=== PATIENT | male | born 1965 | race Two or more races ===

== ENCOUNTER → 2018-10-25 09:31 | Outpatient (CLI) | payer BC, SELFPAY ==
--- NOTE | 2018-10-25 09:37 | RAD_ITS ---
STUDY: X-RAY - RIGHT HAND REASON FOR EXAM: Male, 53 years old. Pain TECHNIQUE: 3 view(s) of the hand. COMPARISON: None. FINDINGS: Normal radiocarpal articulation. Normal distal radioulnar joint. Normal visualized carpal bones. Normal carpal articulations Normal carpometacarpal articulation of the thumb. Normal second through fifth carpometacarpal joints. Normal metacarpi. Normal metacarpophalangeal joint of the thumb. Normal interphalangeal joint of the thumb. Normal proximal and distal phalanges of the thumb. Normal metacarpophalangeal joints of the second through fifth fingers. Normal proximal and distal interphalangeal joints of the second through fifth fingers. Normal phalanges of the second through fifth fingers. The soft tissue structures are unremarkable. RAD/Hand Min 3 Views IMPRESSION: Normal x-ray examination of the hand. No fractures. No osteoarthritis Electronically Signed: Sujit Montgomery MD at 5:25 EST Tel , Service support ,
--- NOTE | 2018-10-25 09:37 | RAD_ITS ---
STUDY: X-RAY - LEFT HAND REASON FOR EXAM: Male, 53 years old. Pain TECHNIQUE: 3 view(s) of the hand. COMPARISON: None. FINDINGS: Normal radiocarpal articulation. Normal distal radioulnar joint. Normal visualized carpal bones. Normal carpal articulations Normal carpometacarpal articulation of the thumb. Normal second through fifth carpometacarpal joints. Normal metacarpi. Normal metacarpophalangeal joint of the thumb. Normal interphalangeal joint of the thumb. Normal proximal and distal phalanges of the thumb. Normal metacarpophalangeal joints of the second through fifth fingers. Normal proximal and distal interphalangeal joints of the second through fifth fingers. Normal phalanges of the second through fifth fingers. The soft tissue structures are unremarkable. RAD/Hand Min 3 Views IMPRESSION: Normal x-ray examination of the hand. No fracture. No osteoarthritis Electronically Signed: Sujit Montgomery MD at 5:26 EST Tel , Service support ,
== END ==
PROVIDERS: Referring Provider Internal Medicine; Visit Provider Internal Medicine
DX: M25.50 Pain in unspecified joint (principal)
CPT/HCPCS: 73130

== ENCOUNTER → 2018-11-15 13:32 | Outpatient (CLI) | payer SELFPAY ==
--- NOTE | 2018-11-15 13:39 | CT_ITS ---
STUDY: CT CHEST WITHOUT CONTRAST REASON FOR EXAM: Male, 53 years old. Limited chest scan for calcium scoring RADIATION DOSAGE (If Supplied By Facility): CTDIvol = ( 12.19 ) mGy, DLP = ( 219.42 ) mGycm TECHNIQUE: Transaxial imaging was performed without the administration of intravenous contrast material. Multiplanar coronal and sagittal images were reformatted. Individualized dose optimization techniques were used for this CT. COMPARISON: None. FINDINGS: Visualized lungs are unremarkable without pulmonary nodule/mass. There is no demonstrated pleural abnormality. Normal heart and pericardium. There are calcifications of the coronary arteries. Total Agaston score of 50.5 (59th percentile). Normal mediastinum. Normal hilar regions. Normal unenhanced pulmonary arteries. Normal aorta arch and descending thoracic aorta. Normal osseous structures. There is no demonstrated abnormality of the visualized upper abdomen. CT/Limited Chest CT w/CCTA IMPRESSION: 1. Mild coronary atherosclerosis. 2. No pulmonary nodule/mass. Electronically Signed: Man Mcmahan MD at 19:13 EST , Service support ,
--- NOTE | 2018-11-15 13:39 | CT_ITS ---
STUDY: CT CHEST WITHOUT CONTRAST REASON FOR EXAM: Male, 53 years old. Limited chest scan for calcium scoring RADIATION DOSAGE (If Supplied By Facility): CTDIvol = ( 12.19 ) mGy, DLP = ( 219.42 ) mGycm TECHNIQUE: Transaxial imaging was performed without the administration of intravenous contrast material. Multiplanar coronal and sagittal images were reformatted. Individualized dose optimization techniques were used for this CT. COMPARISON: None. FINDINGS: Visualized lungs are unremarkable without pulmonary nodule/mass. There is no demonstrated pleural abnormality. Normal heart and pericardium. There are calcifications of the coronary arteries. Total Agaston score of 50.5 (59th percentile). Normal mediastinum. Normal hilar regions. Normal unenhanced pulmonary arteries. Normal aorta arch and descending thoracic aorta. Normal osseous structures. There is no demonstrated abnormality of the visualized upper abdomen. CT/CCTA Calcium Scoring IMPRESSION: 1. Mild coronary atherosclerosis. 2. No pulmonary nodule/mass. Electronically Signed: Man Mcmahan MD at 19:13 EST , Service support ,
[2018-11-15 13:54] VITALS: BP 174/108; PULSE 51; RESP 16; O2SAT 98; BMI 35.5
--- NOTE | 2018-11-22 12:23 | CA.SCORE ---
Calcium Scoring Date of Study:: 11/15/18 Coronary Calcium Scoring: Total calcium score of 50.5 Conclusion: Conclusion: The total calcium score (50.5) is between the 50th and 75th percentile for men between the ages of 50 and 54. (Exact percentile calculated to be 59%; this means 58% of the population has a lower calcium score and 41% of the population has a higher calcium score than this patient.) This likely represents mild plaque burden with likely mild to minimal coronary artery stenosis. A full evaluation of cardiac risk should include an assessment of all conventional risk factors, and the scores and percentile ranking is reported herein should be evaluated in this context. Recommend clinical correlation or alternative mode of testing if coronary occlusive disease or ischemia is suspected. Results: Left main: 0 Left anterior descending (LAD): 42.1 Left circumflex (LCx): 8.34 Right coronary artery (RCA): 0 Total Agatston score: 50.5 Impression: See above.
== END ==
PROVIDERS: Family Provider Internal Medicine; PCP Internal Medicine; Referring Provider Internal Medicine; Visit Provider Internal Medicine
DX: E78.00 Pure hypercholesterolemia, unspecified (principal)
CPT/HCPCS: 75571; 76380

== ENCOUNTER → 2022-10-09 | Outpatient (CLI) | payer OTHER, SELFPAY ==
--- NOTE | 2022-10-09 14:11 | RAD_ITS ---
STUDY: X-RAY - LEFT ANKLE REASON FOR EXAM: Male, 57 years old. Pain. TECHNIQUE: 3 view(s) of the ankle. COMPARISON: None. FINDINGS: Normal visualized distal tibia and fibula. Normal medial and lateral malleoli. Normal tibiotalar articulation and ankle mortise. Normal visualized talus and calcaneus. The visualized subtalar, talonavicular, calcaneocuboid and tarsal articulations are normal. The soft tissue structures are unremarkable. RAD/Ankle min 3 Views IMPRESSION: Normal x-ray examination of the ankle. Electronically Signed: Regan Rolle, at 15:31 EST ,
== END | disposition home or self-care (01) ==
LOC: MTRAD 14:08
PROVIDERS: PCP Internal Medicine; Referring Provider Internal Medicine; Visit Provider Internal Medicine
DX: M25.572 Pain in left ankle and joints of left foot (principal)
CPT/HCPCS: 73610

== ENCOUNTER 2023-02-04 15:24 | Emergency (ER) | payer OTHER, SELFPAY ==
[2023-02-04] VITALS (9 sets, daily range): BP systolic 119–172; BP diastolic 71–107; PULSE 60–76; RESP 14–18; TEMP 36.2; O2SAT 97–99; BMI 38.5
--- NOTE | 2023-02-04 15:30 | NURSING ---
NO OLD EKGS
--- NOTE | 2023-02-04 15:54 | EKG12_ITS ---
Test Reason : CP Blood Pressure : / mmHG Vent. Rate : 075 BPM Atrial Rate : 075 BPM P-R Int : 148 ms QRS Dur : 092 ms QT Int : 414 ms P-R-T Axes : 050 043 054 degrees QTc Int : 462 ms Normal sinus rhythm Incomplete right bundle branch block Borderline ECG Confirmed by LISSETTE GIRARD, DANIELA ([id number]), scientific editor JACKIE ELIZABETH ([id number]) on 02/05/2023 12:47:27 PM Referred By: MANUEL Confirmed By:DANIELA MCLAUGHLIN MD
--- NOTE | 2023-02-04 15:55 | RAD_ITS ---
STUDY: X-RAY CHEST REASON FOR EXAM: Male, 57 years old. CHEST PAIN chest pain TECHNIQUE: XR Chest 1 View COMPARISON: None FINDINGS: There is no demonstrated pleural abnormality. Normal size heart. Normal mediastinum and pritesh. Normal visualized pulmonary arteries. Normal visualized aortic arch and descending thoracic aorta. Normal visualized thoracic spine. Normal visualized ribs, clavicles, and shoulders. There is no demonstrated abnormality of the visualized soft tissue structures of the upper abdomen. RAD/Chest 1 View (Portable) IMPRESSION: There are no acute findings. Electronically Signed: Jimenez Cavazos MD at 16:18 EDT ,
--- NOTE | 2023-02-04 15:55 | ED.VIS.CHEST ---
HPI History of Present Illness Chief Complaint: Chest Pain Narrative Narrative: 57-year-old male with history of hypertension, hyperlipidemia sent in by his PCP for chest pain. Apparently is noncompliant with his hypertension medications per his PCP. Patient reports he started having left-sided jaw pain on Sunday when he was at work and states it was intermittent. He thought it was something like TMJ. Over the course of the weekend this had come and gone several times. Today he woke up and felt like he may have slept on his left shoulder wrong. He reports pain in the left trapezius, near left shoulder blade and he was at [employer] when he started to radiate into his left chest. He describes this as a tightness and squeezing. He relates that he was short of breath a little bit. He was not diaphoretic, lightheaded, nauseous. PFSH PFS Medical History Hyperlipidemia Hypertension Home Medications tizanidine 4 mg capsule (Zanaflex) 4 mg PO Q8H PRN muscle spasticity #10 caps 02/04/23 [Rx Last Taken Unknown] Allergy/AdvReac Type Severity Reaction Status Date / Time No Known Allergies Allergy Verified 02/04/23 15:24 Social History Smoking Status: Never smoker ROS ROS ED Constitutional Constitutional ED: Denies chills, fever(s) or sweats Eyes Eyes: Denies blurry vision or change in vision ENT ENT ED: Reports other Details: Left jaw pain ; Denies sore throat Cardiovascular Cardiovascular: Denies chest pain, palpitations or racing heartbeat Respiratory/Chest Respiratory/Chest: Reports dyspnea; Denies cough or sputum Gastrointestinal Gastrointestinal: Denies abdominal pain, constipation, diarrhea, nausea or vomiting Genitourinary Genitourinary ED: Denies dysuria, hematuria or urinary frequency Musculoskeletal Musculoskeletal: Denies arthralgias, myalgias or neck pain Integumentary Denies abscess, Abrasions or rash Neurologic Neurologic: Denies headache(s), paresthesias or weakness Psychiatric Psychiatric: Denies anxiety, depression, suicidal ideation or suicidal thoughts Endocrine Endocrinology: Denies polydipsia or polyuria EXAM Physical Exam Const Vital Signs: 02/04/23 15:25 02/04/23 15:36 02/04/23 16:00 Temperature 97.1 F L Temperature Source Temporal Pulse Rate 62 Respiratory Rate 18 Respiratory Effort Normal Non-Labored Blood Pressure 172/107 H Blood Pressure Mean 128 Pulse Ox 99 99 Oxygen Delivery Method Room Air Room Air 02/04/23 16:18 02/04/23 16:23 02/04/23 16:24 Temperature Temperature Source Pulse Rate 69 68 69 Respiratory Rate 15 Respiratory Effort Blood Pressure 136/83 H 140/71 H 140/71 H Blood Pressure Mean 94 Pulse Ox 97 Oxygen Delivery Method Room Air 02/04/23 16:29 02/04/23 17:00 02/04/23 18:00 Temperature Temperature Source Pulse Rate 76 60 69 Respiratory Rate 16 14 Respiratory Effort Blood Pressure 152/82 H 122/79 H 119/75 Blood Pressure Mean 93 89 Pulse Ox 99 99 Oxygen Delivery Method Room Air Room Air Positive well nourished General Appearance ED: NAD HEJENNYFER Reports moist mucous membranes normocephalic and atraumatic Eyes PERRL Neck Neck Narrative: There is some cervical paraspinal muscular tenderness in the left trapezius. Chest Wall inspection of chest normal Resp normal respiratory effort and clear to auscultation bilaterally Auscultation: Negative for rales, rhonchi or wheezes Cardio regular rate and regular rhythm GI normal to inspection, nondistended, normoactive bowel sounds Extremity Extremity Narrative: When ranging the left shoulder this does reproduce the discomfort in the patient's chest on the left. Neuro oriented x3 and CN's II-XII intact bilaterally Sensorium / Orientation: awake and alert Psych mental status grossly normal Skin no rashes or lesions noted Heart Score History: Slightly/Non-Suspicious ECG: Normal Age: >45 - <65 years Risk Factors: 1 or 2 Risk Factors Troponin: </= Normal Limit Score: 2 MDM MDM MDM Narrative Medical decision making narrative: Patient presenting with chest pain. Initially it was left jaw pain which came and went over course of the weekend. Now he is having left shoulder and left chest pain which he describes as squeezing and radiates into the trapezius. Initial differential is STEMI versus NSTEMI, chest wall strain, PE, pneumonia, aortic dissection. Patient's EKG on my interpretation shows a normal sinus rhythm with a ventricular rate of 75 bpm without sign of ischemic change. KS interval 140 ms, QRS duration 92 ms, QT 414 ms, QTc 460 ms. No evidence of ischemia on my interpretation. At this point patient will have troponin and delta troponin to rule out NSTEMI. HEART score is 2. Chest x-ray to rule out pneumonia, dissection. Patient PERC negative so low suspicion for PE. He is having reproducible pain in the left chest wall with range of motion of the which would make musculoskeletal pain likely. His jaw pain is improved. He is not having ripping and tearing pain neurologic symptoms to suggest he is having dissection. Patient initially hypertensive at 172/107 but his come down to 145/74. CBC to assess white blood cell count, hemoglobin, differential. BMP to assess renal function electrolytes. Patient given a nitroglycerin trial as he is still having some squeezing pain in the chest. Nitroglycerin did not help his pain. CBC shows a normal white blood cell count at 9.2. Hemoglobin chronic are stable. Platelets are normal. Renal function electrolytes within normal limits. High-sensitivity troponin is 6 initially and the delta troponin is 7. There is no significant interval change. At this point I feel the patient is stable to be discharged home. Will discuss with Dr. Orlando for follow-up. Patient discharged stable condition. Impression: 1. Chest pain 2. Elevated blood pressure resolved 3. Jaw pain Lab Data Attestation: I reviewed the patient's lab results. Labs: Laboratory Results - last 24 hr 02/04/23 02/04/23 02/04/23 15:30 15:30 17:34 WBC 9.2 RBC 5.13 Hgb 15.4 Hct 47.0 MCV 91.6 MCH 30.0 MCHC 32.8 RDW Std Deviation 43.8 RDW Coeff of Patricia 12.9 Plt Count 260 MPV 11.0 Immature Gran % (Auto) 0.200 Neut % (Auto) 62.9 Lymph % (Auto) 25.1 [place] % (Auto) 8.6 Eos % (Auto) 2.5 Baso % (Auto) 0.7 Absolute Neuts (auto) 5.8 Absolute Lymphs (auto) 2.31 Nucleated RBC % 0 Sodium 140 Potassium 4.1 Chloride 104 Carbon Dioxide 28.0 Anion Gap 8 BUN 18 Creatinine 0.95 Estim Creat Clear Calc 95.30 Est GFR (MDRD) Af Amer 105 Est GFR (MDRD) Non-Af 87 BUN/Creatinine Ratio 18.9 Glucose 93 Calcium 9.2 Troponin I High Sens 6 7 Radiography Diagnostic Testing: Clinical Impression(s) from Imaging Studies Chest X-Ray 02/04/23 15:55 IMPRESSION: There are no acute findings. Electronically Signed: Jimenez Cavazos MD at 16:18 EDT Reading Location ID and State: [facility] / [place] , Service support , Discharge Plan Triage Chief Complaint: Chest Pain ED Provider: Stanley Mcdonald Dx/Rx/DC Orders Instructions: ED Chest Pain, Noncardiac, ED Chest Wall Strain Prescriptions: New tizanidine [Zanaflex] 4 mg capsule 4 mg PO Q8H PRN (Reason: muscle spasticity) Qty: 10 0RF Primary Care Provider: Mery Orlando Referrals: Mery Orlando MD [Primary Care Provider] - Disposition Disposition: Home, Self Care
[2023-02-04] MEDS: Aspirin 81 MG TAB.CHEW 324 MG PO (15:58)
[2023-02-04 16:10] LABS: Absolute Lymphocyte Count 2.31 X10^3/uL (0.83-4.51); Absolute Neutrophil Count 5.8 X10^3/uL (2.0-7.7); Basophil# 0.06 X10^3/uL; Basophil% 0.7 % (0-1); Eosinophil# 0.23 X10^3/uL; Eosinophils% 2.5 % (0-5); Hemoglobin 15.4 g/dL (13.0-16.5); Lymphocyte # 2.31 X10^3/ul (0.83-4.51); Lymphocyte % 25.1 % (19-41); Mean Corp Hgb Conc 32.8 g/dL (32-36); Mean Corpuscular Volume 91.6 fL (80-94); Monocyte# 0.79 X10^3/uL; Monocyte% 8.6 % (0-10); NRBC Flagged by Analyzer 0 % (0-5); Neutrophil # 5.78 X10^3/uL (2.7-7.7); Neutrophil % 62.9 % (47-70); Platelet Count 260 K/mm3 (150-450); RBC Distribution Width CV 12.9 % (11.6-14.6); RBC Distribution Width SD 43.8 fl (35.1-43.9); Red Blood Count 5.13 M/mm3 (4.6-6.2); White Blood Count 9.2 K/mm3 (4.4-11.0)
[2023-02-04] MEDS: Nitroglycerin SL (ED/IMG/CATH) 0.4 MG TABLET SL ×3 (16:18→16:29)
[2023-02-04 16:24] LABS: Anion Gap 8 (5-15); BUN 18 mg/dL (7-18); BUN/Creat Ratio 18.9 RATIO (10-20); Calcium,Total 9.2 mg/dL (8.5-10.1); Chloride 104 mmol/L (98-107); Creatinine, Serum 0.95 mg/dL (0.70-1.30); EST Glomerular Filtration Rate 87 mL/min (>60); Est Glom Filt Rate - Afr Amer 105 mL/min (>60); Glucose 93 mg/dL (74-106); Potassium 4.1 mmol/L (3.5-5.1); Sodium Level 140 mmol/L (136-145); Troponin-I HS (w/2H Reflex) 6 pg/mL (3.0-78.0)
[2023-02-04 17:40] LABS: Reflex Troponin-HS? (from REC) Y
[2023-02-04 18:08] LABS: Troponin-I HS 7 pg/mL (3.0-78.0)
== END 2023-02-04 18:46 | disposition home or self-care (01) ==
PROVIDERS: Emergency Provider Student in an Organized Health Care Education/Training Program; PCP Internal Medicine; Visit Provider Student in an Organized Health Care Education/Training Program
DX: R07.9 Chest pain, unspecified (principal); I10 Essential (primary) hypertension; M25.512 Pain in left shoulder; R68.84 Jaw pain; E78.5 Hyperlipidemia, unspecified; R06.02 Shortness of breath
CPT/HCPCS: 71045; 80048; 84484; 85025; 93005; 99285; A4216

== ENCOUNTER → 2023-03-09 | Outpatient (CLI) | payer OTHER, SELFPAY ==
--- NOTE | 2023-03-09 13:02 | STRESSREP ---
Stress Test Report Treadmill myocardial perfusion stress test. Indication; 57-year-old patient with history of hypertension, hyperlipidemia Presented with symptoms of chest pain to the ER, symptoms radiate to the jaw and between the shoulder blade Had a prior echocardiogram in [place] in 2006 as well as stress test. And has been on medical therapy. Based on his clinical presentation he was evaluated by treadmill sestamibi study. Stress protocol: This patient exercised according to standard Luis M protocol for a total of 9 minutes achieving work level of METS maximum METS 10.4. Resting EKG demonstrates. Normal sinus rhythm. 0.4 mg of regadenoson was infused per usual protocol followed by rapid intravenous saline flush injection continuous EKG monitoring was performed. The maximum heart rate attained was 250 bpm which was 152% of maximum predicted heart . Stress EKG showed[, no significant change from the resting EKG, with maximum heart rate of 250 bpm. Artifacts were noted on the EKG Arrhythmia: No arrhythmia demonstrated Symptoms: Patient had no symptoms of chest pain, shortness of breath and ankle discomfort. Blood pressure at rest: 112/62 mmHg blood pressure at the end of stress: 220/72 mmHg Myocardial perfusion protocol. 15 mCi ]of Technetium 99m Sestamibi was injected at rest. [ 0.4 mg ]of Regadenoson was infused per usual protocol peak infusion 44 mCi ]of Technetium 99m sestamibi was injected. Stress images were obtained stress and rest images were reconstructed and compared in the short axis vertical and horizontal long axis. Gated images were also obtained Perfusion SPECT analysis: Review of the images demonstrate normal uptake of sestamibi at rest, post stress images demonstrate moderate reduced tracer uptake was noted in the inferior and the lateral myocardium With evidence of reversible myocardial ischemia, inferolateral. Gated SPECT analysis: The gated ejection fraction is 65%. Normal LV wall motion.. Conclusion: Abnormal treadmill sestamibi myocardial fusion study With inferolateral reversible myocardial ischemia Preserved LV systolic function. Correlate with the clinical presentation and consider cardiac catheterization if clinically warranted Jessica Paulino MD,FACC,[facility]
== END | disposition home or self-care (01) ==
PROVIDERS: PCP Internal Medicine; Visit Provider Internal Medicine
DX: I25.10 Atherosclerotic heart disease of native coronary artery without angina pectoris (principal); R07.9 Chest pain, unspecified
CPT/HCPCS: 78452; 93017; A9500; A4216

== ENCOUNTER → 2023-03-16 | Outpatient (CLI) | payer OTHER, SELFPAY ==
[2023-03-16 16:51] LABS: Absolute Lymphocyte Count 2.69 X10^3/uL (0.83-4.51); Absolute Neutrophil Count 4.9 X10^3/uL (2.0-7.7); Basophil# 0.06 X10^3/uL; Basophil% 0.7 % (0-1); Eosinophil# 0.27 X10^3/uL; Eosinophils% 3.1 % (0-5); Hematocrit 46.8 % (40-54); Hemoglobin 15.3 g/dL (13.0-16.5); Lymphocyte # 2.69 X10^3/ul (0.83-4.51); Lymphocyte % 30.9 % (19-41); Mean Corp Hgb Conc 32.7 g/dL (32-36); Mean Corpuscular Hgb 30.4 pg (27.0-32.0); Mean Platelet Vol. 10.9 fl (6.2-12.0); Monocyte# 0.82 X10^3/uL; Monocyte% 9.4 % (0-10); NRBC Flagged by Analyzer 0 % (0-5); Neutrophil # 4.85 X10^3/uL (2.7-7.7); Neutrophil % 55.7 % (47-70); Platelet Count 259 K/mm3 (150-450); Red Blood Count 5.03 M/mm3 (4.6-6.2); White Blood Count 8.7 K/mm3 (4.4-11.0)
[2023-03-16 17:05] LABS: Anion Gap 2 (5-15); BUN 14 mg/dL (7-18); BUN/Creat Ratio 14.6 RATIO (10-20); Calcium,Total 9.5 mg/dL (8.5-10.1); Chloride 105 mmol/L (98-107); Creatinine, Serum 0.96 mg/dL (0.70-1.30); EST Glomerular Filtration Rate 86 mL/min (>60); Est Glom Filt Rate - Afr Amer 104 mL/min (>60); Glucose 98 mg/dL (74-106); Potassium 4.5 mmol/L (3.5-5.1); Sodium Level 138 mmol/L (136-145)
== END | disposition home or self-care (01) ==
LOC: LAB 16:27
PROVIDERS: PCP Internal Medicine; Referring Provider Internal Medicine Cardiovascular Disease; Visit Provider Internal Medicine Cardiovascular Disease
DX: I25.10 Atherosclerotic heart disease of native coronary artery without angina pectoris (principal); R07.9 Chest pain, unspecified
CPT/HCPCS: 36415; 80048; 85025

== ENCOUNTER 2023-03-23 06:51 | Day surgery (SDC) | payer OTHER, SELFPAY ==
[2023-03-22 07:46] VITALS: BMI 38.0
--- NOTE | 2023-03-23 08:31 | CL.D_ITS ---
Patient Name: JOHN PIÑA Study Date: 03/23/2023 Performing: Rios Wellington MD Ht: 72 inches 182.88 cm : 1965 Wt: 280.01 lbs 127.01 kg Age: 57 Gender: male BSA: 2.46 PROCEDURE(S) PERFORMED [id number])LHC/COR/LV CLINICAL PROFILE AND INDICATIONS Indications: Suspected CAD Heart Failure: None Stress/Imaging Date: 03/09/23Stress Test with SPECT MPI: Positive Low Risk CAD Presentations: Symptom unlikely to be ischemic. CONCLUSIONS Non obstructive coronary arteries Hypertension RECOMMENDATIONS Medical therapy DESCRIPTION OF PROCEDURE The patient arrived to the procedure lab. The risks and benefits of the procedure as well as a full description of our services here and current unavailability of surgical backup were fully explained to the patient and/or their significant other prior to the catheterization. The Timeout was completed, verifying the correct patient and procedure. The patient's procedural site was prepped and draped in the usual fashion. Local anesthetic was given subcutaneously to right radial region with Lidocaine 2%. Using a modified Seldinger technique, arterial access was obtained via the right radial artery, a 6Fr sheath was inserted. Left Coronary Artery selective angiography was performed in multiple views using a 5 Fr. 4.0 Jber catheter. Right Coronary Artery selective angiography was then performed in multiple views using a 5 Fr. 4.0 Jber catheter. Left Ventriculography was performed in HER projection using a 5 Fr. Pigtail catheter. LV to AO pullback pressures were then recorded.The arterial sheath was pulled and a TR Band was applied for hemostasis CORONARY ANGIOGRAPHY DOMINANCE: Right Dominant LEFT HEART ASSESSMENT Left Ventricular Ejection Fraction: by LV Gram 60 % Normal LV wall motion Normal Left Ventricular systolic function LEFT MAIN: Mild calcification, Mild luminal irregularities LEFT ANTERIOR DESCENDING ARTERY: Mild luminal irregularities less than 30% CIRCUMFLEX ARTERY: Mild luminal irregularities RIGHT CORONARY ARTERY: Mild luminal irregularities less than 30% COMPLICATIONS No Complications PROCEDURE MEDICATIONS Fentanyl 50 mcg IV Versed 1 mg IV Versed 1 mg IV Versed 1 mg IV Fentanyl 25 mcg IV Baby Aspirin (81mg) 1 Tabs PO @ 03/23/2023 07:15:01 SUMMARY OF HEMODYNAMIC DATA Time AIR REST ECG 07:15:48 AO 141/91 (114) SA 08:13:32 LV 137/11, 21 08:18:31 LV 137/11, 20 08:18:40 LV 142/1, 25 08:19:36 LVp 142/1, 27 08:19:41 AOp 148/83 (113) 08:19:48 Signed By Rios Wellington MD On 03/23/2023 08:30:48 Rios Wellington MD
== END 2023-03-23 10:10 | disposition home or self-care (01) ==
LOC: CLSP 06:56
PROVIDERS: PCP Internal Medicine; Referring Provider Internal Medicine Cardiovascular Disease; Visit Provider Internal Medicine Cardiovascular Disease
DX: I25.10 Atherosclerotic heart disease of native coronary artery without angina pectoris (principal); I10 Essential (primary) hypertension; E78.00 Pure hypercholesterolemia, unspecified; K21.9 Gastro-esophageal reflux disease without esophagitis; Z79.82 Long term (current) use of aspirin; Z79.899 Other long term (current) drug therapy
CPT/HCPCS: 93458; 99152; 99153; J7040; Q9967; C1769; C1894